=== PATIENT | male | born 1970 | race Caucasian/White ===

== ENCOUNTER 2017-12-17 12:14 | Day surgery (SDC) | payer MEDICARE, OTHER ==
[~2017-12-17] VITALS: Ht 180.3 cm; Wt 109.1 kg
[~2017-12-17 12:14] MED LIST: (None)20 M1 PO; ALBIPROI; ALBU90OI INH; ALBU90OI6 INH; ALLO100; ALPR.25; ALPR.5 PO; ALPR.5CR PO; AMLO10 PO; AMOCLA875 PO; ASPI81EC; ATOR10; ATOR40TA; ATOR40TA PO; AZIT250 PO; BISA10S PR; BUPR150ER PO; Baclofen10 MG PO; CIPR500 PO; CLON1; CRUTCH4 USE; CYCL10 PO; Cyclobenzaprine5 MG PO; DIPATR PO; DIPH50; Desyrel150 MG PO; Diclofenac Sodi50 MG PO; ENAL2.5; FENO145 PO; FLUSAL1005 INH; FLUT44OIA; FURO20; FURO40; GABA300 PO; GEMF600 PO; GUAPHELA PO; HYDACE10B PO; HYDR10; IBUP600 PO; IBUP800; IBUP800 PO; INHALER; LAVAP17G PO; LISI10; LOSA25 PO; METH10; METO100ER; METR500 PO; MIRT30; NEOPOLHYD OP; NORT10; Naprosyn500 MG PO; Norco 10-325 T1 EACH PO; Norco 5-325 Ta1 EACH PO; ONDA4 PO; OXYC15ER PO; OXYC30 PO; OXYC30ER PO; OXYM.05NI; PENVK500 PO; POTA10T; PRED20 PO; PREG75; PROCODE120 PO; Percocet 10-321 EACH PO; Percocet 5-3251 EACH PO; Phenergan25 M1 PO; Protonix40 MG PO; QUET25; QUIN325; RANI150 PO; ROPI1 PO; RXSULTRIDS PO; RXTRAM50 PO; Roxicodone5 MG PO; SALM50IP INH; SIMV40 PO; SULTRIDS PO; TRAM50 PO; TRAZ150T57; TRIAOI; VARE1 PO; VENL75ER PO; Zofran8 MG PO
[2017-12-17] MEDS ORDERED: ANORO ELLIPTA1 EACH INH (12:35)
[2017-12-17] MEDS ORDERED: ANORO ELLIPTA1 EACH PO (12:35)
[2017-12-17] MEDS ORDERED: BUSP10 PO (12:39)
[2017-12-17] MEDS ORDERED: TIZANIDINE HCL2 MG PO (12:39)
[2017-12-17] MEDS ORDERED: DULO60 PO (12:40)
[2017-12-17] MEDS ORDERED: ATOR80 PO (12:40)
[2017-12-17] MEDS ORDERED: LOSA50 PO (12:41)
[2017-12-17] MEDS ORDERED: METF500 PO (12:41)
[2017-12-17] MEDS ORDERED: METO100ER PO (12:42)
[2017-12-17] MEDS ORDERED: PANT40 PO (12:42)
[2017-12-17] MEDS ORDERED: AMLO10 PO (12:43)
[2017-12-17] MEDS ORDERED: ASPI81CH PO (12:43)
[2017-12-17] MEDS ORDERED: (None)15 G1 (12:44)
== END 2017-12-17 15:10 | disposition home or self-care (01) ==
LOC: ORSCSDS 12:14
PROVIDERS: Urology
PROC: 0TJB8ZZ Inspection of Bladder, Via Natural or Artificial Opening Endoscopic (ICD-10-PCS; principal; 2017-12-17 13:30)
DX: R31.0 Gross hematuria (principal); I10 Essential (primary) hypertension; G47.33 Obstructive sleep apnea (adult) (pediatric); J44.9 Chronic obstructive pulmonary disease, unspecified; E11.9 Type 2 diabetes mellitus without complications; F17.210 Nicotine dependence, cigarettes, uncomplicated; Z79.82 Long term (current) use of aspirin; Z79.84 Long term (current) use of oral hypoglycemic drugs; Z79.899 Other long term (current) drug therapy
CPT/HCPCS: 82947; J0744; J2250; J3010; J7120

== ENCOUNTER 2018-12-30 13:05 | Emergency (ER) | payer MEDICARE, OTHER ==
[~2018-12-30] VITALS: Ht 180.3 cm; Wt 113.4 kg
[~2018-12-30 13:05] MED LIST changes: +(None)15 G1; +ANORO ELLIPTA1 EACH INH; +ANORO ELLIPTA1 EACH PO; +ASPI81CH PO; +ATOR80 PO; +BUSP10 PO; +DULO60 PO; +LOSA50 PO; +METF500 PO; +METO100ER PO; +PANT40 PO; +TIZANIDINE HCL2 MG PO
[2018-12-30] MEDS ORDERED: ALBU90OI INH (14:04)
[2018-12-30] MEDS ORDERED: Prednisone20 MG PO (14:04)
[2018-12-30] MEDS ORDERED: Zithromax250 MG PO (14:04)
[2018-12-30] MEDS ORDERED: Cheratussin AC118 ML PO (14:09)
== END 2018-12-30 14:23 | disposition home or self-care (01) ==
LOC: ER 13:05
DX: J44.1 Chronic obstructive pulmonary disease with (acute) exacerbation (principal); I25.2 Old myocardial infarction; K21.9 Gastro-esophageal reflux disease without esophagitis; E11.9 Type 2 diabetes mellitus without complications; F41.9 Anxiety disorder, unspecified; I10 Essential (primary) hypertension; F17.200 Nicotine dependence, unspecified, uncomplicated; Z88.2 Allergy status to sulfonamides; Z79.899 Other long term (current) drug therapy
CPT/HCPCS: 71046; 94640; 99285-25

== ENCOUNTER 2020-10-27 20:11 | Emergency (ER) | payer MEDICARE, OTHER ==
[~2020-10-27] VITALS: Ht 177.8 cm; Wt 108.9 kg
[~2020-10-27 20:11] MED LIST changes: +Cheratussin AC118 ML PO; +Prednisone20 MG PO; +Zithromax250 MG PO
[2020-10-27] MEDS ORDERED: ACYC800 PO (20:49)
== END 2020-10-27 20:55 | disposition home or self-care (01) ==
LOC: ER 20:11
DX: B02.9 Zoster without complications (principal); I10 Essential (primary) hypertension; J44.9 Chronic obstructive pulmonary disease, unspecified; I25.10 Atherosclerotic heart disease of native coronary artery without angina pectoris; F17.200 Nicotine dependence, unspecified, uncomplicated; Z79.82 Long term (current) use of aspirin; Z86.73 Personal history of transient ischemic attack (TIA), and cerebral infarction without residual deficits
CPT/HCPCS: 99282

== ENCOUNTER 2021-04-01 23:13 | Emergency (ER) | payer MEDICARE, OTHER ==
[~2021-04-01] VITALS: Ht 177.8 cm; Wt 112.5 kg
[~2021-04-01 23:13] MED LIST changes: +ACYC800 PO
[2021-04-02 01:15] LABS: BASOPHILS PERCENT AUTO 1 % (0-2); EOSINOPHILS ABSOLUTE AUTO 0.19 K/mm3 (0.00-0.68); EOSINOPHILS PERCENT AUTO 1 % (0-6); Hematocrit 44.9 % (37.0-53.0); IMMATURE GRAN ABSOLUTE AUTO 0.12 K/mm3 (0.00-0.10); IMMATURE GRAN PERCENT AUTO 1 % (0-1); LYMPHOCYTES ABSOLUTE AUTO 4.27 K/mm3 (0.84-5.20); LYMPHOCYTES PERCENT AUTO 31 % (21-46); MONOCYTES PERCENT AUTO 12 % (4-13); Mean Corpuscular HGB 30.9 pg (26.0-34.0); Mean Corpuscular HGB Conc 33.4 g/dL (31.5-36.5); Mean Corpuscular Volume 92 fL (80-100); Mean Platelet Volume 10.4 fL (9.1-12.4); NEUTROPHILS ABSOLUTE AUTO 7.61 K/mm3 (1.96-9.15); NEUTROPHILS PERCENT AUTO 55 % (41-73); Platelet Count 290 K/mm3 (150-400); RDW Coefficient Variation 13.1 % (11.7-14.2); RDW Standard Deviation 44.2 fL (35.1-46.3); Red Blood Cell Count 4.86 M/mm3 (4.30-5.90); White Blood Cell Count 13.89 K/mm3 (4.00-11.30)
[2021-04-02 01:35] LABS: Alanine Aminotransfer (ALT/SGP 35 U/L (12-78); Albumin, Blood 3.7 g/dL (3.4-5.0); Albumin/Globulin Ratio 1.2 (0.8-1.8); Alk Phos 72 U/L (50-136); Anion Gap 6 mmol/L (6-16); Aspartate Aminotrans (AST/SGOT 20 U/L (12-37); Bilirubin, Total 0.2 mg/dL (0.1-1.0); Blood Urea Nitrogen 11 mg/dL (8-24); Bun/Creatinine Ratio 11.5 (12.0-20.0); CO2, Blood 27 mmol/L (21-32); Calcium, Blood 8.3 mg/dL (8.5-10.1); Chloride, Blood 104 mmol/L (98-108); Creatinine, Blood 0.95 mg/dL (0.60-1.20); Globulin, Blood 3.2 g/dL (2.2-4.0); Glomerular Filtration Rate >60 (60-); Glucose, Blood 90 mg/dL (70-99); Potassium, Blood 3.8 mmol/L (3.5-5.5); Sodium, Blood 137 mmol/L (136-145); Total Protein, Blood 6.9 g/dL (6.4-8.2); Troponin I <0.015 ng/mL (0.000-0.040)
== END 2021-04-02 01:59 | disposition home or self-care (01) ==
LOC: ER 23:13
PROVIDERS: Student in an Organized Health Care Education/Training Program
DX: M25.561 Pain in right knee (principal); G89.29 Other chronic pain; I10 Essential (primary) hypertension; K21.9 Gastro-esophageal reflux disease without esophagitis; J44.9 Chronic obstructive pulmonary disease, unspecified; I25.10 Atherosclerotic heart disease of native coronary artery without angina pectoris; F17.210 Nicotine dependence, cigarettes, uncomplicated; Z88.2 Allergy status to sulfonamides; Z79.899 Other long term (current) drug therapy; Z79.84 Long term (current) use of oral hypoglycemic drugs; Z79.82 Long term (current) use of aspirin
CPT/HCPCS: 80053; 83690; 83880; 84484; 85025; 93005; 93010; 99283-25